=== PATIENT | male | born 1970 | race Caucasian/White ===

== ENCOUNTER 2018-09-06 18:40 | Emergency (ER) | payer BC ==
[2018-09-06 18:59] VITALS: RESP 16; TEMP 97.8
[2018-09-06] MEDS ORDERED: TETRACAINE HCL 0.5 % 1 DROP SOL ONE (19:32)
[2018-09-06 21:09] VITALS: BP 126/90; PULSE 77; O2SAT 92
== END 2018-09-06 19:54 | disposition home or self-care (01) ==
LOC: ED 18:40
DX: S05.01XA Injury of conjunctiva and corneal abrasion without foreign body, right eye, initial encounter (principal)
CPT/HCPCS: 99283; A9270-GY

== ENCOUNTER 2018-09-07 03:33 | Emergency (ER) | payer BC ==
[2018-09-07 03:38] VITALS: BP 149/87; PULSE 76; RESP 16; TEMP 96; O2SAT 98
[2018-09-07] MEDS ORDERED: TDAP VACCINE 0.5 ML SUS IM ONE ×2 (05:14→05:20)
== END 2018-09-07 05:35 | disposition short-term general hospital (02) ==
LOC: ED 03:33
DX: T15.01XA Foreign body in cornea, right eye, initial encounter (principal)
CPT/HCPCS: 65220; 70480; 90471; 90715; 99283

== ENCOUNTER 2019-01-18 23:08 | Emergency (ER) | payer BC ==
[2019-01-18] MEDS ORDERED: NITROGLYCERIN 0.4 MG TAB SL PRN (23:17)
[2019-01-18] MEDS: FENTANYL 100MCG/2ML SOL IV ONE (23:17)
[2019-01-18 23:20] VITALS: TEMP 97
[2019-01-18] MEDS: SODIUM CHLORIDE 0.9% 1000ML 1,000 ML IV ONE (23:30)
[2019-01-18 23:32] LABS: BASOPHILS % (AUTO) 1 % (0-3); EOSINOPHILS % (AUTO) 3 % (0-9); HEMATOCRIT 43 % (39-53); HEMOGLOBIN 14.4 gm/dl (13.5-17.7); LYMPHOCYTES % (AUTO) 42.5 % (10-50); MEAN CORPUSCULAR HEMOGLOBIN 29.7 pg (27.0-32.0); MEAN CORPUSCULAR HGB CONC 33.7 gm/dl (32.0-36.0); MEAN CORPUSCULAR VOLUME 88 fL (80-100); MONOCYTES % (AUTO) 9.8 % (0-12); NEUTROPHILS % (AUTO) 43.7 % (37-80)
[2019-01-19 00:02] LABS: ALBUMIN 3.6 gm/dl (3.4-5.0); ALKALINE PHOSPHATASE 81 IU/L (46-116); ALT 34 IU/L (14-63); AST 24 IU/L (15-37); BILIRUBIN,TOTAL 0.2 mg/dl (0.2-1.0); BLOOD UREA NITROGEN 17 mg/dl (7-18); CALCIUM 8.3 mg/dl (8.5-10.1); CARBON DIOXIDE 25.4 mEq/L (21-32); CHLORIDE 103 mMol/L (98-107); CREATININE 0.96 mg/dl (0.80-1.30); GLUCOSE 122 mg/dl (74-106); POTASSIUM 3.3 mMol/L (3.5-5.1); SODIUM 139 mMol/L (136-145); TOTAL PROTEIN 7.1 gm/dl (6.4-8.2); TROP I < 0.017 ng/ml (0.000-0.056)
[2019-01-19 00:07] LABS: ALCOHOL 0.105 gm/dl (0.000-0.08)
[2019-01-19 02:55] VITALS: RESP 20
[2019-01-19 03:18] LABS: AMPHETAMINES NEGATIVE (NEGATIVE); BARBITUATES NEGATIVE (NEGATIVE); BENZODIAZEPINES NEGATIVE (NEGATIVE); CANNABINOL(THC) POSITIVE (NEGATIVE); COCAINE(COC) NEGATIVE (NEGATIVE); METHADONE NEGATIVE (NEGATIVE); METHAMPHETAMINES NEGATIVE (NEGATIVE); OPIATES(OPI) NEGATIVE (NEGATIVE); OXYCODONE(OXY) NEGATIVE (NEGATIVE); PROPOXYPHENE(PPX) NEGATIVE (NEGATIVE); TRICYCLIC ANTIDEPRESSANTS NEGATIVE (NEGATIVE)
[2019-01-19 04:05] VITALS: BP 104/56; PULSE 91; O2SAT 94
== END 2019-01-19 03:40 | disposition home or self-care (01) ==
LOC: ED 23:08
DX: F10.129 Alcohol abuse with intoxication, unspecified (principal); F12.90 Cannabis use, unspecified, uncomplicated; Y90.5 Blood alcohol level of 100-119 mg/100 ml; R07.9 Chest pain, unspecified
CPT/HCPCS: 36415; 71045; 80053; 80305; 80307; 84484; 85025; 85378; 93005; 96365; 96366; 99284; 99285